=== PATIENT | male | born 1945 | race Caucasian/White ===

== ENCOUNTER 2016-10-19 17:11 | Inpatient (IN) ==
--- NOTE | 2016-10-19 17:21 | Emergency Department Note ---
Disposition Clinical Impression: NSTEMI (non-ST elevated myocardial infarction), Unstable angina pectoris Disposition: Admitted As Inpatient Condition: Good Referrals: NO,PCP [Non-Partnered Physician] - Forms: ED Satisfaction Letter Chest Pain HPI - General Chief Complaint: ED Chest Pain Stated Complaint: chest pain Source: patient, EMS Mode of arrival: EMS Limitations: no limitations Vital Signs Reviewed: Yes Nursing Notes Reviewed: Yes - History of Present Illness HPI Narrative: Patient is a 71-year-old male who had an episode of chest tightness approximately 4 hours before arrival. He took one sublingual nitroglycerin did help his pain somewhat. He went out to the [place] urgent care he was given a second sublingual nitroglycerin and aspirin the pain completely resolved and the second nitroglycerin. He is also experiencing some dizziness which he takes meclizine and took that medication also. He was referred here for the [facility] has first troponin was negative and nonischemic EKG and is chest pain-free at this time Pt complaint: chest pain Onset (ago): hour(s) (4) Duration: constant, now resolved Onset: during rest Pain Location: substernal Severity scale (1-10): 0 Quality: tightness Pain Radiation: none Improves with: nitroglycerin Worsens with: nothing Associated symptoms: Denies: vomiting, diaphoresis - Related Data Allergies Allergy/AdvReac Type Severity Reaction Status Date / Time celecoxib [From Celebrex] Allergy Palpitation Verified 10/19/16 17:16 s simvastatin Allergy Joint Pain Verified 10/19/16 17:16 All systems ED: reviewed and negative except as stated. Constitutional: Denies: fever, chills Neurological: Reports: other (dizzy) Chest Pain PMH - Past Medical History Medical history: Reports: coronary artery disease, diabetes, GERD, hypertension Psychiatric history: Reports: no psych history - Social History Smoking Status: Never smoker Alcohol use: Reports: none Drug use: Reports: none Physical Exam - General Limitations: no limitations General appearance: alert - Head Head exam: atraumatic, normocephalic, normal inspection - Eye Eye exam: Present: normal appearance, PERRL, EOMI - Expanded Eye Exam Pupils: Left: reactive - ENT ENT exam: normal exam, normal oropharynx, mucous membranes moist - Expanded ENT Exam External ear exam: Present: normal external inspection Mouth exam: Present: normal external inspection Teeth exam: Present: normal inspection Throat exam: Present: normal inspection - Neck Neck exam: Present: normal inspection, full ROM, trachea midline - Chest Chest inspection: Present: normal inspection, symmetric chest wall rise - Respiratory Respiratory exam: Present: normal lung sounds bilaterally - Cardiovascular Cardiovascular exam: Present: regular rate, normal rhythm, normal heart sounds - Abdominal Exam Abdominal exam: Present: soft, Non-Tender. Absent: tenderness, distention, guarding, rebound, rigidity - Extremities Exam Extremities exam: Present: normal inspection, full ROM. Absent: tenderness, pedal edema - Expanded Upper Extremity Exam Shoulder exam: Present: normal inspection, full ROM Arm exam: Present: normal inspection, full ROM Elbow exam: Present: normal inspection, full ROM Forearm/Wrist exam: Present: normal inspection, full ROM Hand exam: Present: normal inspection, full ROM Vascular exam: Normal: capillary refill, radial pulse - Expanded Lower Extremity Exam Hip/Pelvis exam: Present: normal inspection, full ROM Upper leg exam: Present: normal inspection, full ROM Knee exam: Present: normal inspection, full ROM Lower leg exam: Present: normal inspection, full ROM Ankle exam: Present: normal inspection, full ROM Foot/toe exam: Present: normal inspection, full ROM Neurovascular/Tendon exam: Absent: motor deficit, sensory deficit, tendon deficit - Back Exam Back exam: Present: normal inspection, full ROM. Absent: tenderness - Neurological Exam Neurological exam: Present: alert, oriented X3 - Expanded Neurological Exam Patient oriented to: Present: person, place, time Coma Scale Eye Opening: Spontaneous Coma Scale Motor Response: Obeys Commands Coma Scale Verbal Response: Oriented Coma Scale Total: 15 - Psychiatric Psychiatric exam: Present: normal affect, normal mood - Skin Skin exam: Present: warm, dry, intact, normal color Course Vital Signs Temperature 98.1 F 10/19/16 17:12 Pulse Rate 66 10/19/16 17:12 Respiratory Rate 18 10/19/16 17:12 Blood Pressure 146/74 10/19/16 17:12 O2 Sat by Pulse Oximetry 96 10/19/16 17:12 Temperature 98.1 F 10/19/16 17:12 Pulse Rate 61 10/19/16 19:37 Respiratory Rate 18 10/19/16 19:37 Blood Pressure 125/71 10/19/16 19:37 O2 Sat by Pulse Oximetry 98 10/19/16 19:37 Chest Pain - Differential Diagnosis Likely: stable angina, unstable angina pectoris, atypical chest pain, st elevation myocardial infraction, chest pain - Medical Records Medical records reviewed: Yes I reviewed the patient's medical records. - Lab Data Lab results reviewed: Yes I reviewed the patient's lab results. Result diagrams: 10/19/16 19:02 Lab Results 10/19/16 10/19/16 10/19/16 Range/Units 19:01 19:02 20:36 Sodium 139 (136-145) mEq/L Potassium 4.8 H (3.5-4.5) mEq/L Chloride 107 (98-109) mEq/L Carbon Dioxide 17 L (19-29) mEq/L BUN 21 (8-26) mg/dL Creatinine 1.42 H (0.72-1.25) mg/dL Est GFR ( Amer) 60 (> 60) Est GFR (Non-Af Amer) 49 L (> 60) BUN/Creatinine Ratio 15 (6-26) Glucose 113 H (70-99) mg/dL Calculated Osmolality 292 (280-300) Calcium 8.8 (8.6-10.8) mg/dL Troponin I 0.15 H* (0-0.03) ng/mL Specimen Rejected Volume - Radiology Data Radiology results reviewed: Yes I reviewed the patient's radiology results.
[2016-10-19 19:21] LABS: Calcium 8.8 mg/dL (8.6-10.8)
[2016-10-19 19:23] LABS: Potassium 4.8 mEq/L (3.5-4.5)
[2016-10-19] MEDS ORDERED: *HR* Enoxaparin 120 MG/0.8 ML SYRINGE SQ STA (21:14)
[2016-10-19] MEDS ORDERED: Ondansetron 4 MG/2 ML VIAL IVP PRN (23:42)
[2016-10-19] MEDS ORDERED: Naloxone 0.4 MG/ML INJ IVP PRN (23:42)
[2016-10-19] MEDS ORDERED: Acetaminophen 325 MG TABLET PO PRN (23:42)
[2016-10-19] MEDS ORDERED: *HR* Morphine 2 MG/ML SYRINGE IVP PRN (23:42)
[2016-10-19] MEDS ORDERED: 0.9 % Sodium Chloride 1,000 ML IVC SCH (23:45)
[2016-10-20 03:49] LABS: Basophils % 0.3 %; Eosinophils # 0.2 K/mcL (0.0-0.6); Eosinophils % 1.6 %; Hematocrit 39.3 % (37.5-50.1); Hemoglobin 12.7 g/dL (12.9-16.9); Immature Granulocytes % 0.8 % (0-4); Immature Platelets 4.2 % (1.1-6.1); Lymphocytes # 2.3 K/mcL (0.6-4.6); Lymphocytes % 23.7 %; Mean Corpuscular HGB Conc 32.3 g/dL (31.6-35.5); Mean Corpuscular Hemoglobin 28.8 pg (28.0-33.3); Mean Corpuscular Volume 89.1 fL (83.0-100.0); Mean Platelet Volume 10.3 fL (9.4-12.4); Monocytes # 0.9 K/mcL (0.0-1.3); Monocytes % 9.3 %; Neutrophils # 6.1 K/mcL (1.6-8.9); Platelet Count 213 K/mcL (140-400); Red Blood Count 4.41 M/mcL (4.19-5.50); Segmented Neutrophils % 64.3 %
[2016-10-20 04:09] LABS: BUN/Creatinine Ratio 17 (6-26); Blood Urea Nitrogen 21 mg/dL (8-26); Calcium 8.2 mg/dL (8.6-10.8); Carbon Dioxide 26 mEq/L (19-29); Chloride 105 mEq/L (98-109); Chol/HDL Ratio 4.6 (0-4.9); Cholesterol 102 mg/dL (< 200); Glucose 159 mg/dL (70-99); HDL Cholesterol 22 mg/dL (40-59); LDL Cholesterol,Calculated 44 mg/dL (0-99); Magnesium 1.7 mg/dL (1.6-2.6); Osmolality,Calculated 298 (280-300); Sodium 141 mEq/L (136-145); Triglycerides 179 mg/dL (< 150); eGFR For African Americans > 60 (> 60); eGFR For Non-African Americans 57 (> 60)
[2016-10-20 04:26] LABS: Potassium 3.1 mEq/L (3.5-4.5)
--- NOTE | 2016-10-20 04:51 | Internal Med History&Physical ---
Date of Encounter: 10/20/16 Time of Encounter: 01:00 Assessment and Plan (1) Coronary artery disease Current visit: Yes Status: Acute We will treat the patient with aspirin, nitroglycerin as needed, statin and beta eoly. Qualifiers: Coronary Disease-Associated Artery/Lesion type: [place] artery [place] vs. transplanted heart: [place] heart Associated angina: with unstable angina Qualified Code(s): I25.110 - Atherosclerotic heart disease of [place] coronary artery with unstable angina pectoris (2) Type 2 diabetes mellitus Current visit: Yes Status: Acute Insulin sliding scale. Qualifiers: Diabetes mellitus complication status: with circulatory complication Diabetes mellitus complication detail: with other circulatory complications Diabetes mellitus mcfp insulin use: with mcfp use Qualified Code(s) : E11.59 - Type 2 diabetes mellitus with other circulatory complications; Z79.4 - residential (current) use of insulin (3) Essential hypertension Current visit: Yes Status: Acute Continue oral antihypertensive medication regimen. (4) NSTEMI (non-ST elevated myocardial infarction) Current visit: Yes Status: Acute We will start a heparin drip. Nothing by mouth for possible cardiac catheterization today. Also cardiology. Obtain echocardiogram. Continue one aspirin and beta eloy. Oxygen by nasal cannula. Nitroglycerin as needed. He is at high risk for morbidity and mortality and complications due to invasive cardiovascular studies with IV contrast dye. Internal Medicine - H&P: HPI Admitted From: Emergency Dept Plans for Post Hospital Care: Home History of present illness: Mr. Bocanegra is a 71 year old male with past medical history significant for coronary artery disease hypertension and diabetes who presented to the hospital for chest pain. He describes left-sided chest pain which started at rest earlier today graded as 7/10, pressure or squeezing like initially improved with nitroglycerin. He initially presented to the [facility] and was transferred to our hospital. At the [facility] his troponin was negative. Here in the emergency department troponin was 0.15. A 10 point review of systems was negative except as above. Family history negative for premature coronary artery disease in both parents. Patient's father of complications of asthma. Past Med Surg Social Fam HX - Past Medical History Medical history: coronary artery disease, diabetes, GERD, hypertension Psychiatric history: no psych history - Social History Smoking Status: Never smoker Smokeless Tobacco Status: No Alcohol use: none Drug use: none - Family History Mother Living Status: Age at : 92 Father Living Status: Hx Family Cardiac Disorders: Yes Hx Family Respiratory Disorders: Yes (asthma) Brother Hx Family Cancer: Yes (throat) Sister Hx Family Cancer: Yes (breast) Internal Medicine - H&P: Meds Acetaminophen [Tylenol] 325 mg PO Q6HR PRN 10/19/16 [History] Amlodipine Besylate 10 mg PO DAILY 10/19/16 [History] Aspirin Enteric Coated [Aspirin EC] 81 mg PO DAILY 10/19/16 [History] Carboxymethylcellulose Sodium [Refresh Liquigel] 1 drop BOTH EYES QID 10/19/16 [ History] Cholecalciferol (D-3) [Vitamin D] 2,000 unit PO DAILY 10/19/16 [History] Gabapentin [Neurontin] 300 mg PO TID 10/19/16 [History] Grape Seed Extract [Grape Seed] 50 mg PO DAILY 10/19/16 [History] Isosorbide MONOnitrate (24 HR) [Imdur] 60 mg PO DAILY 10/19/16 [History] Lisinopril/Hydrochlorothiazide [Zestoretic 20-25 mg Tablet] 1 each PO DAILY [History] Meclizine HCl [Verticalm] 25 mg PO Q6H PRN 10/19/16 [History] Metformin HCl [Glucophage] 1,000 mg PO BID 10/19/16 [History] Methocarbamol [Robaxin-750] 750 mg PO QID PRN 10/19/16 [History] Metoprolol [Lopressor] 37.5 mg PO BID 10/19/16 [History] Morphine Sulfate 15 mg PO BID 10/19/16 [History] Pantoprazole Sodium [Protonix] 40 mg PO DAILY 10/19/16 [History] Pravastatin Sodium [Pravachol] 30 mg PO HS 10/19/16 [History] Tamsulosin [Flomax] 0.4 mg PO DAILY 10/19/16 [History] Testosterone [Androgel] 2 spray TD DAILY 10/19/16 [History] Ubidecarenone [Coenzyme Q-10] 200 mg PO DAILY 10/19/16 [History] Allergies celecoxib [From Celebrex] Allergy (Verified 10/19/16 17:16) Palpitations simvastatin Allergy (Verified 10/19/16 17:16) Joint Pain All Systems PM: A 10-system review of systems was performed and is negative for pertinent findings except as documented above in the HPI. - Constitutional Vitals: Temp Pulse Resp BP Pulse Ox 97.7 F 73 18 104/58 94 L 10/20/16 02:48 10/20/16 02:48 10/20/16 02:48 10/20/16 02:48 10/20/16 02:48 General appearance: Present: A&O X 3 - Eye Eye exam: Present: PERRL, conjuntiva pink, sclera anicteric Pupils: Present: PERRL - Respiratory Respiratory exam: Present: CTAB. Absent: accessory muscle use, rales, rhonchi, wheezes - Cardiovascular Cardiovascular exam: Present: RRR, +S1, +S2. Absent: diastolic murmur, gallop, rubs, systolic murmur - GI/Abdominal GI/Abdominal exam: Present: normal bowel sounds, soft, no peritoneal signs. Absent: distended, tenderness - Extremities Exam Extremities exam: Present: warm, radial pulses palpable and symetrical. Absent : calf tenderness, cyanotic, pedal edema - Neurological Exam Neurological exam: Present: CN II-XII intact, oriented X3, no focal deficits. Absent: pronater drift, facial droop, speech deficit - Skin Skin exam: Present: dry, intact Internal Med - H&P Results - Labs CBC & Chem 7: 10/20/16 03:01 10/20/16 03:01 Labs: Short CBC 10/20/16 Range/Units 03:01 WBC 9.5 (4.3-11.1) K/mcL Hgb 12.7 L (12.9-16.9) g/dL Hct 39.3 (37.5-50.1) % Plt Count 213 (140-400) K/mcL Neutrophils # 6.1 (1.6-8.9) K/mcL BMP 10/20/16 03:01 Sodium 141 Potassium 3.1 L D Chloride 105 Carbon Dioxide 26 BUN 21 Creatinine 1.25 Glucose 159 H Calcium 8.2 L Cardiac Enzymes 10/20/16 Range/Units 03:01 Troponin I 0.19 H* (0-0.03) ng/mL - Impressions [facility] reveals normal sinus rhythm, normal axis and intervals no acute ST or T-wave changes.
[2016-10-20] MEDS ORDERED: *HR* Heparin 5,000 UNIT/ML VIAL IVP PRN ×2 (05:50)
[2016-10-20] MEDS ORDERED: *HR* Heparin 5,000 UNIT/ML VIAL IVP ONE (05:50)
[2016-10-20] MEDS ORDERED: Nitroglycerin 0.4 MG TAB.SUBL SL PRN (05:53)
[2016-10-20 06:28] LABS: INR 1.1
[2016-10-20 06:30] LABS: Activated Partial Thrombo Time 30.7 Seconds (26.0-36.0)
[2016-10-20] MEDS: Heparin 25,000 UNIT/500 ML D5W 25,000 UNIT/500 ML MLS IVC SCH (06:32)
[2016-10-20 08:38] LABS: Hematocrit 38.8 % (37.5-50.1); Mean Corpuscular HGB Conc 33.5 g/dL (31.6-35.5); Mean Corpuscular Hemoglobin 29.5 pg (28.0-33.3); Mean Platelet Volume 10.5 fL (9.4-12.4); Platelet Count 199 K/mcL (140-400); Red Blood Count 4.41 M/mcL (4.19-5.50); Red Cell Distribution Width 13.9 % (11.5-14.5)
[2016-10-20] MEDS: amLODIPine 5 MG TABLET PO SCH (09:23)
[2016-10-20] MEDS: Gabapentin 300 MG CAPSULE PO SCH ×3 (09:23→20:03)
[2016-10-20] MEDS: Aspirin Enteric Coated 81 MG Tablet PO SCH (09:23)
[2016-10-20] MEDS: Isosorbide MONOnitrate (24 HR) 60 MG TAB.ER.24H PO SCH (09:23)
--- NOTE | 2016-10-20 09:33 | Cardiology Consult Note ---
<Clarisa Woo Tom - Last Filed: 10/20/16 09:43> Date of Encounter: 10/20/16 Time of Encounter: 08:20 Assessment and Plan (1) NSTEMI (non-ST elevated myocardial infarction) Current Visit: Yes Status: Acute Peak troponin 0.20, no acute ischemic ECG changes. Reports hx of x2 stents at [facility] in 2010. Typical chest pain symptoms--similar to previous MS. Continue heparin gtt, asa, statin, nitrates, and betablocker. Recommend [facility]; alternatives, risks, and benefits discussed; Mr. Bocanegra is agreeable to proceed. Echocardiogram pending. Further recommendations pending above testing. Will discuss with Dr. Wesley. (2) Essential hypertension Current Visit: Yes Status: Acute Continue oral antihypertensive medication regimen. (3) Type 2 diabetes mellitus Current Visit: Yes Status: Acute Qualifiers: Diabetes mellitus complication status: with circulatory complication Diabetes mellitus complication detail: with other circulatory complications Diabetes mellitus terminal clerk insulin use: with long-term use Qualified Code(s) : E11.59 - Type 2 diabetes mellitus with other circulatory complications; Z79.4 - manager terminal (current) use of insulin Discussion w patient/family: The assessment and plan as outlined above was discussed with the patient and/or family members who expressed understanding and agreement. All questions were answered. Thank you for involving us in the care of your patient. Please call with any questions. The patient will be discussed and reviewed with Dr. Wesley; changes to be made accordingly. History of Present Illness Consult date: 10/20/16 Requesting physician: Kwasi Olvera Consult reason: NSTEMI Chief complaint: Chest pain History of present illness: Mr. Bocanegra is a 71 year old male with PMH significant for CAD s/p PCI, DMII, HTN, HLD, and vertigo [facility]. 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 He then sat down and took a NTG tab which alleviated his pain after 10-15 minutes. He was then sent to [facility] for further evaluation. Of note, reports GI virus with vomiting/diarrhea early last week. No prior records available at [facility]. Reports PCI (x2 stents) at [facility] in 2010. Also reports his PCP increased his imdur to 60 mg a few months ago which improved chest pain symptoms. Past Med Surg Social Fam HX - Past Medical History Medical history: coronary artery disease, diabetes, GERD, hyperlipidemia, hypertension Psychiatric history: no psych history - Past Surgical History Surgical History: angioplasty/stent - Social History Smoking Status: Former smoker (in 1992) Smokeless Tobacco Status: No Alcohol use: none Drug use: none - Family History Mother Living Status: Age at : 92 Father Living Status: Hx Family Cardiac Disorders: Yes Hx Family Respiratory Disorders: Yes (asthma) Brother Hx Family Cancer: Yes (throat) Sister Hx Family Cancer: Yes (breast) Medications and Allergies Acetaminophen [Tylenol] 325 mg PO Q6HR PRN 10/19/16 [History] Amlodipine Besylate 10 mg PO DAILY 10/19/16 [History] Aspirin Enteric Coated [Aspirin EC] 81 mg PO DAILY 10/19/16 [History] Carboxymethylcellulose Sodium [Refresh Liquigel] 1 drop BOTH EYES QID 10/19/16 [ History] Cholecalciferol (D-3) [Vitamin D] 2,000 unit PO DAILY 10/19/16 [History] Gabapentin [Neurontin] 300 mg PO TID 10/19/16 [History] Grape Seed Extract [Grape Seed] 50 mg PO DAILY 10/19/16 [History] Isosorbide MONOnitrate (24 HR) [Imdur] 60 mg PO DAILY 10/19/16 [History] Lisinopril/Hydrochlorothiazide [Zestoretic 20-25 mg Tablet] 1 each PO DAILY [History] Meclizine HCl [Verticalm] 25 mg PO Q6H PRN 10/19/16 [History] Metformin HCl [Glucophage] 1,000 mg PO BID 10/19/16 [History] Methocarbamol [Robaxin-750] 750 mg PO QID PRN 10/19/16 [History] Metoprolol [Lopressor] 37.5 mg PO BID 10/19/16 [History] Morphine Sulfate 15 mg PO BID 10/19/16 [History] Pantoprazole Sodium [Protonix] 40 mg PO DAILY 10/19/16 [History] Pravastatin Sodium [Pravachol] 30 mg PO HS 10/19/16 [History] Tamsulosin [Flomax] 0.4 mg PO DAILY 10/19/16 [History] Testosterone [Androgel] 2 spray TD DAILY 10/19/16 [History] Ubidecarenone [Coenzyme Q-10] 200 mg PO DAILY 10/19/16 [History] Allergies celecoxib [From Celebrex] Allergy (Verified 10/19/16 17:16) Palpitations simvastatin Allergy (Verified 10/19/16 17:16) Joint Pain All Systems Review: A 10-system review of systems was performed and is negative for pertinent findings except as documented above in the HPI. - Cardiovascular Cardiovascular: as per HPI Physical Examination Vital Signs, Last 4 Hours Temp Pulse Resp BP Pulse Ox 10/20/16 09:22 62 10/20/16 07:05 97.6 F 58 16 143/82 95 General: Conversant, No Apparent Distress HEENT: Atraumatic, Normocephaly, Mucus Membranes Moist Neck: No JVD Cardiac: Reg Rate and Rhythm, Normal S1 and S2 Lungs: Normal Breath Sounds Neuro: Alert and responsive Abdomen: Soft Skin: No rashes noted on visualized skin Musculoskeletal: No Chest Wall Tenderness Extremities: No Edema, Normal Pulses Results 10/20/16 08:13 10/20/16 03:01 Lab Results 10/20/16 10/20/16 10/20/16 03:01 03:01 03:01 WBC 9.5 Hgb 12.7 L Hct 39.3 Plt Count 213 INR APTT Sodium 141 Potassium 3.1 L D Chloride 105 Carbon Dioxide 26 BUN 21 Creatinine 1.25 Glucose 159 H Calcium 8.2 L Magnesium 1.7 Troponin I 0.19 H* 10/20/16 10/20/16 10/20/16 06:13 08:13 08:13 WBC 9.9 Hgb 13.0 Hct 38.8 Plt Count 199 INR 1.1 APTT 30.7 Sodium Potassium Chloride Carbon Dioxide BUN Creatinine Glucose Calcium Magnesium Troponin I 0.20 H* Active Medications Acetaminophen (Tylenol) 650 mg PO Q6HR PRN PRN Reason: Mild Pain (1-3) Stop: 04/20/17 23:43 Amlodipine Besylate (Norvasc) 10 mg PO DAILY [facility] Stop: 04/21/17 09:01 Last Admin: 10/20/16 09:23 Dose: 10 mg Aspirin (Aspirin Ec) 81 mg PO DAILY [facility] Stop: 04/21/17 09:01 Last Admin: 10/20/16 09:23 Dose: 81 mg Gabapentin (Neurontin) 300 mg PO TID [facility] Stop: 04/21/17 09:01 Last Admin: 10/20/16 09:23 Dose: 300 mg Heparin Sodium (Porcine) (Heparin) 4,000 unit IVP Q6HR PRN PRN Reason: SEE COMMENTS Stop: 04/21/17 05:51 Heparin Sodium (Porcine) (Heparin) 2,000 unit IVP Q6H PRN PRN Reason: SEE COMMENTS Stop: 04/21/17 05:51 Heparin Sodium/Dextrose (Heparin 25,000 Unit/500 Ml D5w) 25,000 unit in 500 mls @ 19.893 mls/hr IVC .Q24H MARI; 9.1 UNIT/KG/HR PRN Reason: Protocol Stop: 04/21/17 06:01 Last Admin: 10/20/16 06:32 Dose: 9.1 unit/kg/hr, 19.893 mls/hr Isosorbide Mononitrate (Imdur) 60 mg PO DAILY [facility] Stop: 04/21/17 09:01 Last Admin: 10/20/16 09:23 Dose: 60 mg Morphine Sulfate (Morphine Sulfate) 2 mg IVP Q4HR PRN PRN Reason: Severe Pain (7-10) Stop: 04/20/17 23:43 Naloxone HCl (Narcan) 0.4 mg IVP Q2MIN PRN PRN Reason: Opioid Reversal Stop: 04/20/17 23:43 Nitroglycerin (Nitroglycerin) 0.4 mg SL Q5MIN PRN PRN Reason: Chest Pain Stop: 04/21/17 05:54 Ondansetron HCl (Zofran) 4 mg IVP Q8HR PRN PRN Reason: Nausea And Vomiting Stop: 04/20/17 23:43 Pharmacy Profile Note (Patient Taking Own Medication) 1 each PO HS [facility] Stop: 04/21/17 21:01 Tamsulosin HCl (Flomax) 0.4 mg PO DAILY [facility] PRN Reason: Protocol Stop: 04/21/17 09:01 Last Admin: 10/20/16 09:23 Dose: 0.4 mg - Imaging and Cardiology Echo: pending Other Results: 12 hour tele: avg HR=63 SR. No signficant event noted. - EKG Interpretation EKG results cardiology: personally reviewed Consult Discharge Plan - Plan [facility]errals: [facility]Primary Care Provider] - <LupilloClaudia - Last Filed: 10/20/16 10:18> Assessment and Plan Discussion w patient/family: The assessment and plan as outlined above was discussed with the patient and/or family members who expressed understanding and agreement. All questions were answered. Thank you for involving us in the care of your patient. Please call with any questions. History of Present Illness History of present illness: Mr. Bocanegra is a 71 year old male All Systems Review: A 10-system review of systems was performed and is negative for pertinent findings except as documented above in the HPI. Physical Examination Vital Signs, Last 4 Hours Temp Pulse Resp BP Pulse Ox 10/20/16 09:22 62 10/20/16 07:05 97.6 F 58 16 143/82 95 Results 10/20/16 08:13 10/20/16 03:01 Lab Results 10/20/16 10/20/16 10/20/16 03:01 03:01 03:01 WBC 9.5 Hgb 12.7 L Hct 39.3 Plt Count 213 INR APTT Sodium 141 Potassium 3.1 L D Chloride 105 Carbon Dioxide 26 BUN 21 Creatinine 1.25 Glucose 159 H Calcium 8.2 L Magnesium 1.7 Troponin I 0.19 H* 10/20/16 10/20/16 10/20/16 06:13 08:13 08:13 WBC 9.9 Hgb 13.0 Hct 38.8 Plt Count 199 INR 1.1 APTT 30.7 Sodium Potassium Chloride Carbon Dioxide BUN Creatinine Glucose Calcium Magnesium Troponin I 0.20 H* - Attending Attestation I examined this patient and my medical decision-making was reviewed with the ZIPPER MACHINE OPERATOR/PA/Advanced Practice Nurse/Resident Physician. I agree with the documented findings, disposition and treatment plan. Mr. Bocanegra presents with an NSTEMI. He describes chest tightness yesterday, typical of his usual symptoms. He has an elevated troponin, now rising at 0.2. Given known history of CAD, his typical symptoms and elevated troponin, we have recommended a LHC. The R/B/A of the procedure were discussed with the patient who expressed understanding and verbalized agreement to proceed.
[2016-10-20] MEDS ORDERED: 0.9 % Sodium Chloride 1,000 ML ONE ×3 (11:56→16:23)
[2016-10-20] MEDS ORDERED: Nitroglycerin 1,000 MCG/10 ML VIAL IV ONE (11:56)
[2016-10-20] MEDS ORDERED: Heparin 1,000 UNITS/500 mL NS 500 ML ONE (11:56)
[2016-10-20] MEDS ORDERED: *HR* Heparin 10,000 UNIT/10 ML VIAL ONE (11:56)
--- NOTE | 2016-10-20 11:59 | Pre-Sedation Evaluation ---
Pre-sedation evaluation - Pre-sedation checklist Date of procedure: 10/20/16 Procedure: Heart Cath Recent Vitals: Last Vital Signs Temp 97.4 F L 10/20/16 11:01 Pulse 61 10/20/16 11:01 Resp 17 10/20/16 11:01 BP 124/81 10/20/16 11:01 Pulse Ox 95 10/20/16 11:01 H&P (including ROS) documented in medical record: Yes Previous reaction to sedatives/anesthetics: No Dietary Status: Clear fluids after Midnight Dentition: No loose teeth or bridges, dentures removed Possible difficult airway: No ASA Classification *see protocol: CLASS II-Mild systemic disease Plan of Care: Pt appropriate candidate for procedure/moderate/conscious sedation , Risks/benefits of procedure/sedation discussed w/ patient/family, If not NPO; Risk of intake outweiged by necessity to perform procedure
[2016-10-20] MEDS ORDERED: *HR* Midazolam HCl 2 MG/2 ML VIAL ONE (12:10)
[2016-10-20] MEDS ORDERED: *HR* FentaNYL (PF) 100 MCG/2 ML VIAL ONE (12:11)
[2016-10-20] MEDS ORDERED: *HR* Bivalirudin 250 MG VIAL IVC ONE (12:41)
[2016-10-20] MEDS ORDERED: *HR* Adenosine 6 MG/2 ML VIAL IVP ONE (12:41)
[2016-10-20] MEDS ORDERED: *HR* Ticagrelor 90 MG TABLET ONE (13:05)
--- NOTE | 2016-10-20 15:01 | Internal Med Progress Note ---
Date of Encounter: 10/20/16 Time of Encounter: 09:00 - Assessment and plan (1) NSTEMI (non-ST elevated myocardial infarction) Current Visit: Yes Status: Acute Assessment and plan: Patient has elevated troponin with chest pain, history of CAD. Consider NSTEMI , cardiology consul on case, plan for catheterization. Continue heparin drip now. Pt is at high risk because he is on heparin drip, needed close monitoring. (2) Coronary artery disease Current Visit: Yes Status: Acute Assessment and plan: Patient has stents in 2010. Continue aspirin, brilinta, beta eloy, and statin. Qualifiers: Coronary Disease-Associated Artery/Lesion type: [place] artery [place] vs. transplanted heart: [place] heart Associated angina: with unstable angina Qualified Code(s): I25.110 - Atherosclerotic heart disease of [place] coronary artery with unstable angina pectoris (3) Hypokalemia Current Visit: Yes Status: Acute Assessment and plan: Will give potassium supplement (4) Essential hypertension Current Visit: Yes Status: Acute Assessment and plan: Continue home medication. 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 - Subjective Interval history: Patient is a 71-year-old male admitted for chest pain. He has an elevated troponin and was a consider as NSTEMI. His past medical history is significant for CAD, hypertension, diabetes. He was seen and examined. He is pain-free when I saw him. In no acute distress. Vitals are stable. Patient was treated with heparin drip for NSTEMI. Cardiology saw patient and the plan for catheterization. We will continue to closely monitor patient. - Constitutional Vitals: Temp Pulse Resp BP Pulse Ox 97.4 F L 61 17 124/81 95 10/20/16 11:01 10/20/16 11:01 10/20/16 11:01 10/20/16 11:01 10/20/16 11:01 General appearance: Present: A&O X 3 - Head Head exam: Present: atraumatic, normocephalic - Eye Eye exam: Present: PERRL, conjuntiva pink, sclera anicteric Pupils: Present: PERRL - Neck Neck exam general surgery: Present: supple, trachea midline. Absent: lymphadenopathy - Respiratory Respiratory exam: Present: CTAB. Absent: accessory muscle use, rales, rhonchi, wheezes - Cardiovascular Cardiovascular exam: Present: RRR, +S1, +S2. Absent: diastolic murmur, gallop, rubs, systolic murmur - GI/Abdominal GI/Abdominal exam: Present: normal bowel sounds, soft, no peritoneal signs. Absent: distended, tenderness - Extremities Exam Extremities exam: Present: warm, radial pulses palpable and symetrical. Absent : calf tenderness, cyanotic, pedal edema - Neurological Exam Neurological exam: Present: CN II-XII intact, oriented X3, no focal deficits. Absent: pronater drift, facial droop, speech deficit - Skin Skin exam: Present: dry, intact Internal Medicine: Result - Labs CBC & Chem 7: 10/20/16 08:13 10/20/16 03:01 Labs: Short CBC 10/20/16 10/20/16 Range/Units 03:01 08:13 WBC 9.5 9.9 (4.3-11.1) K/mcL Hgb 12.7 L 13.0 (12.9-16.9) g/dL Hct 39.3 38.8 (37.5-50.1) % Plt Count 213 199 (140-400) K/mcL Neutrophils # 6.1 (1.6-8.9) K/mcL BMP 10/20/16 03:01 Sodium 141 Potassium 3.1 L D Chloride 105 Carbon Dioxide 26 BUN 21 Creatinine 1.25 Glucose 159 H Calcium 8.2 L Cardiac Enzymes 10/20/16 10/20/16 Range/Units 03:01 08:13 Troponin I 0.19 H* 0.20 H* (0-0.03) ng/mL - ABG Interpretation ABG results: PT/INR, D-dimer PT 12.0 Seconds (9.4-12.1) 10/20/16 06:13 Consult Discharge Plan - Plan [facility]errals: [facility] [Primary Care Provider] -
[2016-10-20] MEDS ORDERED: Methocarbamol 750 MG TABLET PO PRN (15:59)
[2016-10-20] MEDS ORDERED: *HR* Atropine Sulfate 1 MG/10 ML SYRINGE ONE (16:23)
[2016-10-20] MEDS: CARBOXYMETHYLCELLULOSE SODIUM D OP SCH ×2 (17:17→20:03)
[2016-10-20] MEDS: *HR* Ticagrelor 90 MG TABLET PO SCH (20:02)
[2016-10-20] MEDS: *HR* Morphine Sulfate SR (12 HR) 15 MG TABLET.ER PO SCH (20:02)
[2016-10-20] MEDS ORDERED: PRAVASTATIN SODIUM PO SCH (21:00)
[2016-10-21] MEDS: Heparin 25,000 UNIT/500 ML D5W 25,000 UNIT/500 ML MLS IVC SCH (03:30)
[2016-10-21 05:10] LABS: Basophils % 0.4 %; Eosinophils # 0.2 K/mcL (0.0-0.6); Eosinophils % 2.3 %; Hematocrit 39.8 % (37.5-50.1); Hemoglobin 12.8 g/dL (12.9-16.9); Immature Granulocytes % 0.9 % (0-4); Lymphocytes # 2.5 K/mcL (0.6-4.6); Lymphocytes % 26.7 %; Mean Corpuscular HGB Conc 32.2 g/dL (31.6-35.5); Mean Corpuscular Hemoglobin 28.6 pg (28.0-33.3); Mean Platelet Volume 10.3 fL (9.4-12.4); Monocytes # 0.9 K/mcL (0.0-1.3); Monocytes % 10.1 %; Neutrophils # 5.6 K/mcL (1.6-8.9); Platelet Count 229 K/mcL (140-400); Red Blood Count 4.47 M/mcL (4.19-5.50); Segmented Neutrophils % 59.6 %
[2016-10-21 05:15] LABS: BUN/Creatinine Ratio 13 (6-26); Blood Urea Nitrogen 12 mg/dL (8-26); Calcium 8.7 mg/dL (8.6-10.8); Carbon Dioxide 23 mEq/L (19-29); Chloride 109 mEq/L (98-109); Glucose 104 mg/dL (70-99); Osmolality,Calculated 292 (280-300); Potassium 3.8 mEq/L (3.5-4.5); Sodium 141 mEq/L (136-145); eGFR For African Americans > 60 (> 60); eGFR For Non-African Americans > 60 (> 60)
--- NOTE | 2016-10-21 08:37 | Cardiology Progress Note ---
Date of Encounter: 10/21/16 Time of Encounter: 08:00 Assessment and Plan (1) NSTEMI (non-ST elevated myocardial infarction) Current Visit: Yes Status: Acute Peak troponin 0.20, no acute ischemic ECG changes. Reports hx of x2 stents at [facility] in 2010. Typical chest pain symptoms--similar to previous ND. LHC: PTCA/PRINCE to Right PDA; otherwise mild, non-obstructive CAD. EF 55% FFR 0.72 R PDA, FFR 0.82 R PLB TTE: completed, not yet read--can follow-up as outpatient to discuss results. Post PCI guidelines including care of site and importance of uninterrupted DAPT therapy emphasized (asa + brilinta) for at least 1 year; 30-day free card provided. Recommned 5-7 day appt with Cardiology--will coordinate with office, patient will be contacted with appt date/time early this week. Continue betablocker, statin (pravachol at home), ACEi, and nitrates. Cardiology will sign-off, please call with questions. (2) Essential hypertension Current Visit: Yes Status: Acute Continue oral antihypertensive medication regimen. (3) Type 2 diabetes mellitus Current Visit: Yes Status: Acute Insulin sliding scale. Qualifiers: Diabetes mellitus complication status: with circulatory complication Diabetes mellitus complication detail: with other circulatory complications Diabetes mellitus care home insulin use: with care home use Qualified Code(s) : E11.59 - Type 2 diabetes mellitus with other circulatory complications; Z79.4 - [facility] (current) use of insulin Discussion w patient/family: The assessment and plan as outlined above was discussed with the patient and/or family members who expressed understanding and agreement. All questions were answered. Thank you for involving us in the care of your patient. Please call with any questions. The patient was discussed and reviewed with Dr. Wesley; Cardiology will sign-off , please call with questions. Subjective Principal diagnosis: NSTEMI Interval history: Seen and examined--denies any events including chest pain or discomfort overnight. No issues with right groin cath site. Discussed plan with patient and . Objective Vital Signs, Last 4 Hours Pulse Ox 10/21/16 07:35 97 General: Conversant, No Apparent Distress HEENT: Atraumatic, Normocephaly, Mucus Membranes Moist Cardiac: Reg Rate and Rhythm, Normal S1 and S2 Lungs: Normal Breath Sounds Neuro: Alert and responsive, No focal deficits noted Abdomen: Soft, Non-Tender Skin: No rashes noted on visualized skin Musculoskeletal: No Chest Wall Tenderness Extremities: No Edema, Normal Pulses Other: right groin : dressing removed, no hematoma oozing or ecchymosis noted at site. +2 PT/DP pulses bilaterally. Results 10/21/16 04:36 10/21/16 04:36 Lab Results 10/21/16 10/21/16 04:36 04:36 WBC 9.3 Hgb 12.8 L Hct 39.8 Plt Count 229 Sodium 141 Potassium 3.8 Chloride 109 Carbon Dioxide 23 BUN 12 Creatinine 0.96 Glucose 104 H Calcium 8.7 Active Medications Acetaminophen (Tylenol) 650 mg PO Q6HR PRN PRN Reason: Mild Pain (1-3) Stop: 04/20/17 23:43 Amlodipine Besylate (Norvasc) 10 mg PO DAILY [facility] Stop: 04/21/17 09:01 Last Admin: 10/20/16 09:23 Dose: 10 mg Aspirin (Aspirin Ec) 81 mg PO DAILY [facility] Stop: 04/21/17 09:01 Last Admin: 10/20/16 09:23 Dose: 81 mg Aspirin (Aspirin) 81 mg PO DAILY [facility] Stop: 04/22/17 09:01 Last Admin: 10/21/16 07:37 Dose: Not Given Gabapentin (Neurontin) 300 mg PO TID [facility] Stop: 04/21/17 09:01 Last Admin: 10/20/16 20:03 Dose: 300 mg Lisinopril/HCTZ (Prinzide 10-12.5) 2 each PO DAILY [facility] Stop: 04/22/17 09:01 Heparin Sodium (Porcine) (Heparin) 4,000 unit IVP Q6HR PRN PRN Reason: SEE COMMENTS Stop: 04/21/17 05:51 Heparin Sodium (Porcine) (Heparin) 2,000 unit IVP Q6H PRN PRN Reason: SEE COMMENTS Stop: 04/21/17 05:51 Heparin Sodium/Dextrose (Heparin 25,000 Unit/500 Ml D5w) 25,000 unit in 500 mls @ 19.893 mls/hr IVC .Q24H MARI; 9.1 UNIT/KG/HR PRN Reason: Protocol Stop: 04/21/17 06:01 Last Admin: 10/21/16 03:30 Dose: Not Given Isosorbide Mononitrate (Imdur) 60 mg PO DAILY [facility] Stop: 04/21/17 09:01 Last Admin: 10/20/16 09:23 Dose: 60 mg Meclizine HCl (Antivert) 25 mg PO Q6H PRN PRN Reason: DIZZINESS Last Admin: 10/20/16 17:12 Dose: 25 mg Methocarbamol (Robaxin) 750 mg PO QID PRN PRN Reason: Muscle Spasm Stop: 04/21/17 16:00 Last Admin: 10/20/16 17:01 Dose: 750 mg Metoprolol Tartrate (Lopressor) 25 mg PO BID [facility] Stop: 04/21/17 21:01 Last Admin: 10/20/16 20:03 Dose: 25 mg Morphine Sulfate (Morphine Sulfate) 2 mg IVP Q4HR PRN PRN Reason: Severe Pain (7-10) Stop: 04/20/17 23:43 Last Admin: 10/20/16 15:29 Dose: 2 mg Morphine Sulfate (Ms Contin) 15 mg PO BID [facility] Stop: 04/21/17 21:01 Last Admin: 10/20/16 20:02 Dose: 15 mg Naloxone HCl (Narcan) 0.4 mg IVP Q2MIN PRN PRN Reason: Opioid Reversal Stop: 04/20/17 23:43 Nitroglycerin (Nitroglycerin) 0.4 mg SL Q5MIN PRN PRN Reason: Chest Pain Stop: 04/21/17 05:54 Omeprazole (Prilosec) 20 mg PO DAILY [facility] Stop: 04/22/17 09:01 Ondansetron HCl (Zofran) 4 mg IVP Q8HR PRN PRN Reason: Nausea And Vomiting Stop: 04/20/17 23:43 Last Admin: 10/20/16 17:30 Dose: 4 mg Pharmacy Profile Note (Patient Taking Own Medication) 1 each PO HS [facility] Stop: 04/21/17 21:01 Last Admin: 10/20/16 20:03 Dose: Not Given Pharmacy Profile Note (Patient Taking Own Medication) 0 each OP QID MARI Stop: 04/21/17 17:01 Last Admin: 10/20/16 20:03 Dose: Not Given Pharmacy Profile Note (Patient Taking Own Medication) 0 each PO DAILY [facility] Stop: 04/22/17 09:01 Tamsulosin HCl (Flomax) 0.4 mg PO DAILY [facility] PRN Reason: Protocol Stop: 04/21/17 09:01 Last Admin: 10/20/16 09:23 Dose: 0.4 mg Ticagrelor (Brilinta) 90 mg PO BID [facility] Stop: 04/21/17 21:01 Last Admin: 10/20/16 20:02 Dose: 90 mg Vitamin D (Vitamin D) 1,000 unit PO DAILY [facility] Stop: 04/22/17 09:01 - Imaging and Cardiology Echo: pending Cardiac cath: report reviewed Other Results: 12 hour tele: avg HR=59 SR/SB. No significant events noted. - EKG Interpretation EKG results cardiology: personally reviewed Consult Discharge Plan - Plan [facility]errals: [facility] [Primary Care Provider] -
[2016-10-21] MEDS ORDERED: UBIDECARENONE 200 MG PO SCH (09:00)
[2016-10-21] MEDS ORDERED: Cholecalciferol (D-3) 1,000 UNIT TABLET PO SCH (09:00)
[2016-10-21] MEDS ORDERED: Aspirin 81 MG TAB.CHEW PO SCH (09:00)
[2016-10-21] MEDS: amLODIPine 5 MG TABLET PO SCH (09:46)
[2016-10-21] MEDS: Isosorbide MONOnitrate (24 HR) 60 MG TAB.ER.24H PO SCH (09:46)
[2016-10-21] MEDS: Gabapentin 300 MG CAPSULE PO SCH (09:46)
[2016-10-21] MEDS: *HR* Morphine Sulfate SR (12 HR) 15 MG TABLET.ER PO SCH (09:46)
[2016-10-21] MEDS: Aspirin Enteric Coated 81 MG Tablet PO SCH (09:46)
[2016-10-21] MEDS: *HR* Ticagrelor 90 MG TABLET PO SCH (09:47)
[2016-10-21 09:58] VITALS: BP 128/59
[2016-10-21] MEDS: CARBOXYMETHYLCELLULOSE SODIUM D OP SCH ×2 (11:16→11:17)
--- NOTE | 2016-10-21 11:55 | Discharge Summary ---
Date of Encounter: 10/21/16 Time of Encounter: 11:00 - Discharge Diagnosis (1) NSTEMI (non-ST elevated myocardial infarction) Priority: Primary Status: Acute (2) Coronary artery disease Priority: Primary Status: Acute Qualifiers: Coronary Disease-Associated Artery/Lesion type: [place] artery [place] vs. transplanted heart: [place] heart Associated angina: with unstable angina Qualified Code(s): I25.110 - Atherosclerotic heart disease of [place] coronary artery with unstable angina pectoris (3) Hypokalemia Priority: Secondary Status: Acute (4) Essential hypertension Priority: Secondary Status: Acute (5) Type 2 diabetes mellitus Priority: Secondary Status: Acute Qualifiers: Diabetes mellitus complication status: with circulatory complication Diabetes mellitus complication detail: with other circulatory complications Diabetes mellitus terminal operator insulin use: with fdc use Qualified Code(s) : E11.59 - Type 2 diabetes mellitus with other circulatory complications; Z79.4 - intermediate designer (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) use of insulin (6) DVT prophylaxis Priority: Secondary Status: Acute - Discharge Medications Prescriptions: Ticagrelor [Brilinta] 90 mg PO BID #60 tablet Home Medications: Acetaminophen [Tylenol] 325 mg PO Q6HR PRN 10/19/16 [History] Amlodipine Besylate 10 mg PO DAILY 10/19/16 [History] Aspirin Enteric Coated [Aspirin EC] 81 mg PO DAILY 10/19/16 [History] Carboxymethylcellulose Sodium [Refresh Liquigel] 1 drop BOTH EYES QID 10/19/16 [ History] Cholecalciferol (D-3) [Vitamin D] 2,000 unit PO DAILY 10/19/16 [History] Gabapentin [Neurontin] 300 mg PO TID 10/19/16 [History] Grape Seed Extract [Grape Seed] 50 mg PO DAILY 10/19/16 [History] Isosorbide MONOnitrate (24 HR) [Imdur] 60 mg PO DAILY 10/19/16 [History] Lisinopril/Hydrochlorothiazide [Zestoretic 20-25 mg Tablet] 1 each PO DAILY [History] Meclizine HCl [Verticalm] 25 mg PO Q6H PRN 10/19/16 [History] Metformin HCl [Glucophage] 1,000 mg PO BID 10/19/16 [History] Methocarbamol [Robaxin-750] 750 mg PO QID PRN 10/19/16 [History] Metoprolol [Lopressor] 37.5 mg PO BID 10/19/16 [History] Morphine Sulfate 15 mg PO BID 10/19/16 [History] Pantoprazole Sodium [Protonix] 40 mg PO DAILY 10/19/16 [History] Pravastatin Sodium [Pravachol] 30 mg PO HS 10/19/16 [History] Tamsulosin [Flomax] 0.4 mg PO DAILY 10/19/16 [History] Testosterone [Androgel] 2 spray TD DAILY 10/19/16 [History] Ubidecarenone [Coenzyme Q-10] 200 mg PO DAILY 10/19/16 [History] Ticagrelor [Brilinta] 90 mg PO BID #60 tablet 10/21/16 [Rx] Allergies/Adverse Reactions: Allergies celecoxib [From Celebrex] Allergy (Verified 10/19/16 17:16) Palpitations simvastatin Allergy (Verified 10/19/16 17:16) Joint Pain Procedures/tests Complete & Pending: Procedures Performed prior 72 hours Category Date Time Status ECG 12 lead ECG [ECG] Routine Y 10/19/16 17:18 Completed Date of admission: 10/20/16 14:59 [facility]: [facility] Discharging clinician: Celestino Suh Anticipated date of discharge: 10/21/16 - Patient Status Disposition: Home, Self-Care Condition: Good Functional capacity at discharge: independent ambulation Overall status at discharge: patient is back to baseline - Discharge Instructions Follow Up With: [facility] [Primary Care Provider] - - Diet and Activity Activity: increase activity as tolerated Diet: diabetic diet Interval History: Mr. Bocanegra is a 71 year old male with past medical history significant for coronary artery disease hypertension and diabetes who presented to the hospital for chest pain. He describes left-sided chest pain which started at rest earlier today graded as 7/10, pressure or squeezing like initially improved with nitroglycerin. He initially presented to the [place] and was transferred to our hospital. At the [place] his troponin was negative. Here in the emergency department troponin was 0.15. Hospital course: Mr. Bocanegra is a 71 year old male admitted as NSTEMI. He was treated with heparin drip, cardiology consult was called and saw pt. Catheterization and stenting was done. After treatment, pt is stable, no more chest pain. Will discharge pt home today. I saw and examined pt today. He is AAO x 3. No SOB. Vitals are stable. Cardiology saw pt this morning, no catheterization complications. Will d/c pt home and f/u with cardiology as outpatient. - Time Spent with Patient Total time spent providing and/or coordinating discharge services: 40min Greater than 30 minutes - Constitutional Vitals: Temp Pulse Resp BP Pulse Ox 97.6 F 65 16 128/59 99 10/21/16 09:00 10/21/16 10:03 10/21/16 09:00 10/21/16 09:00 10/21/16 09:00 General appearance: Present: A&O X 3 - Head Head exam: Present: atraumatic, normocephalic - Eye Eye exam: Present: PERRL, conjuntiva pink, sclera anicteric Pupils: Present: PERRL - Neck Neck exam general surgery: Present: supple, trachea midline. Absent: lymphadenopathy - Respiratory Respiratory exam: Present: CTAB. Absent: accessory muscle use, rales, rhonchi, wheezes - Cardiovascular Cardiovascular exam: Present: RRR, +S1, +S2. Absent: diastolic murmur, gallop, rubs, systolic murmur - GI/Abdominal GI/Abdominal exam: Present: normal bowel sounds, soft, no peritoneal signs. Absent: distended, tenderness - Extremities Exam Extremities exam: Present: warm, radial pulses palpable and symetrical. Absent : calf tenderness, cyanotic, pedal edema - Neurological Exam Neurological exam: Present: CN II-XII intact, oriented X3, no focal deficits. Absent: pronater drift, facial droop, speech deficit - Skin Skin exam: Present: dry, intact
--- NOTE | 2016-10-21 12:02 | Invasive Diagnostic Lab ---
Name: Lb Bocanegra Date of Study: 10/20/2016 Date: 1945 Ht: 178.0 cm /70.1 in Medical Record#: [id number] Age: 71 Wt: 109.3 kg / 240.97 lb Account/Order#: [id number] Gender: Male BSA: 2.26 Order #: [id number] Fluoro Dose: 1894 mGy BMI: 34.5 Procedure Physician: Alex Powers MD Referring MD: [facility] Referring MD: Procedures Performed: LEFT HEART CATH IV Doppler BLD Flow 1st Vessel Stent w/ PTCA Single Major Vessel Indications: Non-Stemi Impressions: There is severe one vessel coronary artery disease. The left ventricle is normal and has normal contractility EF 55% Patient had successful PTCA/Drug-Eluting Stent placement in the mid Right PDA. FFR Measurement: 0.72 for right PDA FFr measurement: 0.82 for right PLB Recommendations: Optimal medical therapy of patient's disease. Aggressive risk factor modification. Patient being referred for cardiac rehab. History/Risk Factors: Prior PCI (stent x 2) HPTN DM HLD Vertigo GERD Ex-smoker Procedure Access obtained in the right Femoral artery by percutaneous puncture Patient had successful PTCA/Drug-Eluting Stent placement in the mid Right PDA. A pressure tipped wire was advanced through the catheter into the Right PDA. Measurements of FFR were made during hyperemia induced by intracoronary adenosine. FFR Measurement 0.72 A pressure tipped wire was advanced through the catheter into the Right PLB. Measurements of FFR were made during hyperemia induced by intracoronary adenosine. FFR Measurement 0.82 Complications: None, None Contrast: Isovue 246ml Closure Device: Manual Compression Hemodynamics: Pressures Site Systolic/ A Wave Diastolic/ V Wave End Diastolic/ Mean HR AO 117 75 94 58 AO 122 84 102 71 AO 104 76 90 76 LV 135 0 17 73 LV 124 37 43 68 AO 114 72 93 63 AO 119 66 88 66 Wire 103 55 73 66 AO 130 70 92 56 Wire 118 58 77 56 AO 0 Wire 0 AO 121 71 93 62 LV Ventriculography Ejection Method: LV Gram Ejection Fraction: 55% Wall Motion: WEAVER Anterobasal Normal Anterolateral Normal Apical: Normal Inferoapical Normal Inferobasal Normal Coronary Dominance: right Lesion Findings/Interventions * Left Main Coronary Artery The LMCA is angiographically free of disease. * Left Anterior Descending There is a 20% stenosis in the Mid LAD. * Circumflex There is a 20% stenosis in the Proximal Circumflex. * Right Coronary Artery There is a 16 mm long, 70% stenosis in the Right PDA. The lesion has a HUSSAIN flow of 3. An intervention was performed on the Right PDA with a final stenosis of 0%. There were no lesion complications. The final HUSSAIN flow was 3. There is a 60% stenosis in the 1st RPL. The lesion has a HUSSAIN flow of 3. Interventional Device(s) Vessel Segment Type Name Diameter (mm) Length (mm) Right PDA Balloon Emerge Monorail 2 12 Right PDA Drug Eluting Stent Promus Premier Rx 2.25 16 Updated by Shanthi Smalls RN on 10/20/2016 1:35:55 PM Alex Powers MD electronically signed on 10/21/2016 11:57:03 AM with status of Final
--- NOTE | 2016-10-21 12:28 | ECHO - Doppler Report ---
Echocardiogram Name: Lb Bocanegra Date of Study: 10/21/2016 Date: 1945 Ht: 70.0 in Medical Record#: [id number] Age: 71 Wt: 245.0 lb Gender: Male BSA: 2.28 Order #: [id number] Location: [facility] Room #: 2N01 Reading Physician: Claudia Wesley DO Commercial Parts Professional: Antonio Preston RDCS Ordering Physician: Kwasi Olvera MD Primary Physician: None Indications: NSTEMI Impressions: LVEF 55%. Normal left ventricular size and systolic function. There is evidence of moderate diastolic dysfunction of the left ventricle. Mildly dilated with normal function. No significant valvular dysfunction. No pulmonary hypertension. Left Ventricular Wall Motion: Rest Echo Findings All wall segments showed normal motion. Findings: Study Quality * Technically adequate exam. Left Ventricle * LVEF 55%. * Normal LV chamber size, wall thickness and function. * Moderate left ventricular diastolic dysfunction. ECG Findings * Sinus bradycardia. Aortic Valve * No aortic regurgitation. * Trileaflet aortic valve. * Normal aortic valve structure. * No aortic stenosis. Tricuspid Valve * Tricuspid valve not well visualized. * No tricuspid regurgitation. Pulmonic Valve * Pulmonic valve is not well visualized. * No pulmonic stenosis. * Trace pulmonic regurgitation. Pulmonary Artery * Pulmonary artery not well visualized. Right Ventricle * Dilated RV with normal function. Left Atrium * Normal left atrial size. Right Atrium * Normal right atrial size. Mitral Valve * No mitral stenosis. * Trace mitral regurgitation. Interatrial Septum * Interatrial septum not well evaluated. IVC * The IVC is not well evaluated. Pericardium * There is no pericardial effusion present. Aorta * Normally sized aortic root. History Hypertension Diabetes Hypercholesteremia Measurements: BP: 119/ 78 2D Normal Values IVSd: 1.00 cm 0.6 - 1.0 cm LVIDd: 4.60 cm 3.7 - 5.6 cm LVPWd: 1.00 cm 0.6 - 1.1 cm LVIDs: 2.60 cm 1.5 - 3.6 cm AO: 3.00 cm < 4.0 cm LA: 2.70 cm 2.0 - 4.0cm %FS: 43.50 cm >25 % LA volume: 59 Mitral Valve Peak E:.98 m/sec Peak A:.72 m/sec E/A Ratio:1.4 Peak E' Lat Billy:9.07 cm/s Peak E' Med Billy:6.14 cm/s E/E' Lat Ratio:10.8 E/E' Med Ratio:16 Tricuspid Valve TV Regurg Peak Grad: 14.00mmHg TV Regurg Peak Billy: 1.89m/sec Updated by Claudia Wesley on 10/21/2016 12:23:20 PM electronically signed on 10/21/2016 12:23:44 PM with status of Final Wall Motion Llamas: 1=Normal, 2=Hypokinesis, 3=Akinesis, 4=Dyskinesis, 5=Aneurysmal, 6=Hyperkinetic, X=Not Visualized (Blank)=Missing
--- NOTE | 2016-10-22 11:51 | Invasive Diagnostic Lab Proc ---
Name: Lb Bocanegra Date of Study: 10/20/2016 Date: 1945 Ht: 70.1in Medical Record#: [id number] Age: 71 Wt: 240.97lb Gender: Male BSA: 2.26 Order #: [id number] BMI: 34.5 Physicians Procedure Physician: Alex Powers MD Referring MD: [facility] Referring MD: Staff Name Position Time In Shanthi Atkinson RN Monitor 12:22 PM Reddy Kowalski RN Retail Salesperson 12:22 PM Edyta Arias RT (R) Scrub 12:22 PM Indications Indication Non-Stemi Procedures Performed Procedure L HRT ARTERY/VENTRICLE ANGIO IV Doppler BLD Flow 1st Vessel PRQ CARD PRINCE STENT W/ANGIO 1 VSL Pre-Procedure Checklist Informed consent is complete signed and on chart. H\\T\\P is on chart. ID band is on and ID verified with patient. Patient NPO for procedure The procedure was described for the patient and questions were answered. Blood Pressure: 143/82 ECG is on chart. Rhythm: NSR Plan of Care Patient will tolerate the procedure without complications. Adequate level of comfort will be maintained. Hemodynamics will remain stable Patient will recover from procedure without complications. Respiratory function will be maintained. Cardiac rhythm will remain stable. Patient temperature will be maintained. Patient and/or family have verbalized understanding of the procedure. Patient Education Chief Complaint/Reason for Test: Cardiac Cath Developmental Category: Geriatric (65+ years) Developmentally Appropriate for Age: Yes Learning Barriers: None Education Needs: Procedure Education Method: Verbal Information Taught: Cardiac Cath Educational Evaluation: Able to repeat information Intravenous Access Time IV Size Location DC'd Fluid/Drip Rate Units RN 11:51 AM 20g 1 1/4" Patent On Arrival Rt Antecubital 0.9NaCl 25 ml/hr Allergies simvastatin celecoxib Vital Signs Time BP (mmHg) HR (bpm) O2 Sat. RR (bpm) LOC 10:24 AM 143 / 82 58 95 % 16 5 = Fully awake and oriented or at pre-proc level 12:24 PM / % 5 = Fully awake and oriented or at pre-proc level 12:24 PM / % 4 = Oriented but drowsy 12:56 PM / % 4 = Oriented but drowsy 12:22 PM 139 / 75 57 98 % 12:27 PM 135 / 79 55 98 % 12 12:31 PM 125 / 81 62 96 % 18 12:37 PM 130 / 79 64 96 % 13 12:42 PM 129 / 76 69 95 % 17 12:47 PM 129 / 76 64 96 % 13 12:52 PM 134 / 74 62 96 % 15 12:57 PM 138 / 74 62 95 % 12 01:02 PM 130 / 75 65 96 % 11 01:07 PM 132 / 75 62 97 % 11 01:12 PM 132 / 75 63 97 % 13 01:14 PM 133 / 70 63 96 % 12 01:17 PM 122 / 73 65 96 % 13 01:22 PM 123 / 77 60 97 % 13 01:11 PM / % 4 = Oriented but drowsy 01:40 PM 130 / 78 55 97 % 10 5 = Fully awake and oriented or at pre-proc level 02:15 PM 129 / 76 57 97 % 15 5 = Fully awake and oriented or at pre-proc level 02:00 PM 126 / 76 60 96 % 12 5 = Fully awake and oriented or at pre-proc level Procedural Medications Time Medication Dose Units Method Given By 12:23 PM Oxygen 2 L/min nasal cannula Reddy Kowalski RN 12:26 PM Versed 1 mg Intravenous Reddy Kowalski RN 12:26 PM Fentanyl 50 mcg Intravenous Reddy Kowalski RN 12:34 PM Lidocaine 2% 20 ml Subcutaneous Alex Powers MD 12:39 PM Nitroglycerin 200 mcg Intracoronary Alex Powers MD 12:45 PM Angiomax 0.75mg/kg bolus: 16.5 ml Intravenous Reddy Kowalski RN 12:48 PM Angiomax 1.75mg/kg/hr: 38.5 ml Intravenous Reddy Kowalski RN 12:56 PM Adenosine 400 mcg Intracoronary Alex Powers MD 12:56 PM Adenosine 120 mcg Intracoronary Alex Powers MD 12:58 PM Adenosine 100 mcg Intraccrary Alex Powers MD 01:14 PM Nitroglycerin 200 mcg Intracoronary Alex Powers MD 01:17 PM Brilinta 180 mg Orally Reddy Kowalski RN 01:03 PM Fentanyl 50 mcg Intravenous Reddy Kowalski RN 01:26 PM Angiomax 1.75mg/kg/hr: ml Dc'd Reddy Kowalski RN ASA Classification: CLASS II- Mild systemic disease (i.e. well-controlled diabetes, hypertension, asthma, cigarette smoking) Bradley Score Preprocedure Postprocedure Activity 2- Moves 4 extremities sustained head lift Activity 2- Moves 4 extremities sustained head lift Circulation 2- SBP +/= 20 points of pre-anesthetic level Circulation 2- SBP +/= 20 points of pre-anesthetic level Consciousness 2- Awake and alert oriented x 3 Consciousness 2- Awake and alert oriented x 3 O2 Saturation 2- Able to maintain O2 satruation of 92% on room air O2 Saturation 2- Able to maintain O2 satruation of 92% on room air Respiratory 2- Able to deep breathe and cough well Respiratory 2- Able to deep breathe and cough well Total Score 10 Total Score 10 Contrast Agent: Isovue Diagnostic Contrast: 246 ml Total Contrast: 246 ml Fluoro Dose: 1894 mGy Procedure Log Time Note Enter By 11:51 AM CathStat 12:19 PM 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 scoates 12: PM Procedure start 12:20 scoates 12: PM Vitals capture started with the following parameters, Patient=Adult, Interval=5 min, Initial Tufjvkuj=288 mmHg, Deflation Rate=5 mmHg, Cuff placed on Right Arm 12:22 PM HR=57 bpm, IZUG=128/75 mmhg, SpO2=98.0 %, Comment=sb 12:22 PM Patient charges- Angio tray pack, Navilyst 3mm J, Pulse Oximetry and ACIST tubing and transducer scoates 12: PM Shanthi Atkinson RN Position: Monitor Time in: : scoates 12: PM Reddy Kowalski RN Position: Retail Salesperson Time in: 12:22 scoates 12:22 PM Edyta Airas RT (R) Position: Scrub Time in: 12:22 scoates 12:22 PM Case Delayed No scoates 12: PM Hair removed from procedure site in procedure lab using clippers. Bilateral groin prepped with Chloraprep by Reddy Kowalski RN then patient draped. Skin intact. scoates 12:23 PM ASA Class CLASS II- Mild systemic disease (i.e. well-controlled diabetes, hypertension, asthma, cigarette smoking) scoates 12:23 PM Time: 12:23 Oxygen on at 2 L/min per nasal cannula by Reddy Kowalski RN scoates 12: PM Time: 12:23 Patient comfortable and pain free: Yes scoates 12:24 PM Time: 12:24LOC: 5 = Fully awake and oriented or at pre-proc level scoates 12: PM Time: 12: Versed 1 mg Intravenous Given by Reddy Kowalski RN scoates 12: PM Time: 12: Fentanyl 50 mcg Intravenous Given by Reddy Kowalski RN scoates 12: PM HR=55 bpm, GMWD=247/79 mmhg, SpO2=98.0 %, Resp=12 B/min, Comment=sb 12: PM Pressure channel 1 zeroed. 12:31 PM HR=62 bpm, GPEN=749/81 mmhg, SpO2=96.0 %, Resp=18 B/min, Comment=sr 12:34 PM Clinical Presentation: Unstable angina scoates 12:34 PM Time out performed according to hospital policy scoates 12:34 PM Time: 12:34 20 ml Lidocaine 2% to right groin Subcutaneous Given by Alex Powers MD scoates 12:35 PM Access obtained by percutaneous puncture. 6Fr 10cm Terumo Delta sheath placed in right Femoral artery. [id number] scoates 12:35 PM 5Fr FL 4 catheter inserted over the wire DNC scoates 12:35 PM Recorded Pressure: Ao, HR=58, Condition=Condition 1 (Aorta) Ao 117/75/94 12:35 PM LCA angiography performed in multiple views. scoates 12:37 PM HR=64 bpm, YJDJ=137/79 mmhg, SpO2=96.0 %, Resp=13 B/min, Comment=sr 12:37 PM Catheter removed scoates 12:37 PM 5Fr FR 4 catheter inserted over the wire DNC scoates 12:38 PM Recorded Pressure: Ao, HR=71, Condition=Condition 1 (Aorta) Ao 122/84/102 12:39 PM Time: 12:24 Patient comfortable and pain free: Yes scoates 12:39 PM Time: 12:39 Nitroglycerin 200 mcg Intracoronary Given by Alex Powers MDoatecheryl 12:39 PM RCA angiography performed in multiple views. scoates 12:39 PM Recorded Pressure: Ao, HR=76, Condition=Condition 1 (Aorta) Ao 104/76/90 12:40 PM Catheter removed scoates 12:40 PM Coronary Dominance: right scoates 12:40 PM Lesion found in Mid LAD. Pre Stenosis: 20 Pre HUSSAIN Flow: scoates 12:40 PM Lesion found in Proximal Circumflex. Pre Stenosis: 20 Pre HUSSAIN Flow: scoates 12:41 PM Lesion found in Right PDA. Pre Stenosis: 70 Pre HUSSAIN Flow: scoates 12:41 PM Recorded Pressure: LV, HR=73, Condition=Condition 1 (Left Ventricle) LV 135/0/17 12:41 PM 5Fr Pigtail catheter inserted over the wire [facility] scoates 12:41 PM Catheter selectively placed in left ventricle scoates 12:41 PM Bolus angiogram of left Ventricle complete: 10 ml/sec for a total of 30 mls scoates 12:41 PM Recorded Pressure: LV, Ao, HR=65, Condition=Condition 1 (Left Ventricle) LV 124/37/43, (Aorta) Ao 114/72/93 12:42 PM HR=69 bpm, LIJA=963/76 mmhg, SpO2=95.0 %, Resp=17 B/min, Comment=sr 12:43 PM Pressure channel 3 zeroed. 12:44 PM Catheter removed scoates 12:44 PM Inflation device was opened. scoates 12:44 PM 6Fr JR4 Runway guide catheter was used to cannulate the PCI vessel successfully. reused? No scoates 12:44 PM [place] Prime Wire Prestige advanced to target lesion. scoates 12:46 PM Time: 12:45 Angiomax 0.75mg/kg bolus: 16.5 ml Intravenous Given by Reddy Kowalski RN Vanegas pump scoates 12:47 PM HR=64 bpm, YTYL=018/76 mmhg, SpO2=96.0 %, Resp=13 B/min 12:48 PM Time: 12:46 Angiomax 1.75mg/kg/hr: 38.5 ml Intravenous Given by Reddy Kowalski RN Vanegas pump scoates 12:49 PM Pressure channel 3 equalized to channel 1. 12:51 PM Pressure channel 3 equalized to channel 1. 12:52 PM HR=62 bpm, CBSK=128/74 mmhg, SpO2=96.0 %, Resp=15 B/min, Comment=sb 12:53 PM FFR: Value=0.82, Condition=Condition 1, Device=VOLCANO PRIME WIRE 12:53 PM Recorded Pressure: Ao, Wire, FFR=0.82, HR=66, Condition=Condition 1 (Aorta) Ao 119/66/88, (FFR Wire) Wire 103/55/73 12:55 PM FFR: Value=0.82, Condition=Condition 1, Device=VOLCANO PRIME WIRE 12:55 PM Recorded Pressure: Ao, Wire, FFR=0.82, HR=56, Condition=Condition 1 (Aorta) Ao 130/70/92, (FFR Wire) Wire 118/58/77 12:56 PM Time: 12:39 Patient comfortable and pain free: Yes scoates 12:56 PM Time: 12:24LOC: 4 = Oriented but drowsy scoates 12:56 PM Time: 12:56 Adenosine 400 mcg administered Intracoronary by Alex Powers MD scoates 12:56 PM FFR Measurement: 0.82 of the right PLB scoates 12:56 PM Time: 12:56 Adenosine 120 mcg administered Intracoronary by Alex Powers MD scoates 12:56 PM FFR Measurement: 0.82 right PLB scoates 12:57 PM HR=62 bpm, FHQU=256/74 mmhg, SpO2=95.0 %, Resp=12 B/min 12:57 PM FFR: Value=0.71, Condition=Condition 1, Device=VOLCANO PRIME WIRE 12:57 PM Recorded Pressure: Ao, Wire, FFR=0.71, HR=67, Condition=Condition 1 (Aorta) Ao ?/?/?, (FFR Wire) Wire ?/?/? 12:58 PM [ Start FFR sample ] 12:58 PM Time: 12:58 Adenosine 100 mcg administered Intracoronary by Alex Powers MD scoates 12:59 PM FFR Measurement: 0.71 of the right PDA scoates 01:01 PM PCI Status Urgent scoates 01:01 PM Clinical Presentation: Non-STEMI scoates 01:02 PM HR=65 bpm, SCVS=553/75 mmhg, SpO2=96.0 %, Resp=11 B/min, Comment=sb 01:02 PM 2.25mm x 16mm Promus Premier Rx drug-eluting stent across target lesion- successful Lot #[id number] scoates 01:02 PM stent removed, not deployed and in tact, no charge, unable to reuse stent scoates 01:03 PM Time: 13:03 Fentanyl 50 mcg Intravenous Given by Reddy Kowalski RN scoates 01:03 PM Flow Wire removed intact scoates 01:03 PM .014 Prowater 180cm guide wire across target lesion- successful. reused? No scoates 01:05 PM Lesion found in 1st RPL. Pre Stenosis: 60 Pre HUSSAIN Flow: 3: Complete and Brisk Flow/Perfusion scoates 01:05 PM Recorded Pressure: Ao, HR=62, Condition=Condition 1 (Aorta) Ao 121/71/93 01:06 PM .014 Prowater 180cm guide wire across target lesion- successful. reused? No scoates 01:07 PM HR=62 bpm, ATNW=037/75 mmhg, SpO2=97.0 %, Resp=11 B/min, Comment=sr 01:07 PM 1st prowater removed intact scoates 01:08 PM 2.0 mm x 12 mm Emerge Monorail balloon across target lesion- successful. reused? No scoates 01:08 PM Balloon inflated @ 10 travon for 7 seconds scoates 01:09 PM Balloon inflated @ 10 travon for 4 seconds scoates 01:11 PM Balloon catheter removed intact. scoates 01:11 PM Time: 12:56 Patient comfortable and pain free: Yes scoates 01:11 PM Time: 12:56LOC: 4 = Oriented but drowsy scoates 01:11 PM 2.25mm x 16mm Promus Premier Rx drug-eluting stent across target lesion- successful Lot #[id number] scoates 01:12 PM HR=63 bpm, NDKF=597/75 mmhg, SpO2=97.0 %, Resp=13 B/min, Comment=sb 01:13 PM Stent deployed @ 10 travon for 12 seconds scoates 01:13 PM NIBP STAT measurement started. 01:14 PM Time: 13:14 Nitroglycerin 200 mcg Intracoronary Given by Alex Powers MD scoates 01:14 PM HR=63 bpm, VMYI=592/70 mmhg, SpO2=96.0 %, Resp=12 B/min, Comment=sb 01:15 PM Stent delivery system removed intact. scoates 01:15 PM Guide catheter removed intact. scoates 01:15 PM Guide wire removed intact. scoates 01:17 PM HR=65 bpm, IEOB=703/73 mmhg, SpO2=96 %, Resp=13 B/min 01:17 PM Time: 13:17 Brilinta 180 mg Orally Given by Reddy Kowalski RN scoates 01:18 PM Procedure completed at 13:18 scoates 01:18 PM Sign out completed: Radiation Dose 1894 mGy Fluoro Time: 10.6 Isovue 370 - 200ml contrast 246 ml given by Alex Powers MD. Complications: NoneCardiac Rehab Consult needed: YesConfirmed administered medications: Yes scoates 01:22 PM HR=60 bpm, EOQB=682/77 mmhg, SpO2=97 %, Resp=13 B/min 01:26 PM Time: 13:11 Patient comfortable and pain free: Yes scoates 01:26 PM Time: 13:11LOC: 4 = Oriented but drowsy scoates 01:26 PM Time: 13:26 Angiomax 1.75mg/kg/hr: ml Dc'd Given by Reddy Kowalski RN Vanegas pump scoates 01:26 PM Sheath left in place to be pulled on floor/holding [email or web address] scoates 01:27 PM Post ECG NSR scoates 01:27 PM Post Blood Pressure 123/77 scoates 01:28 PM 13:28 Post Pulses Bilateral DP \\T\\ PT 2+ scoates 01:28 PM Information taught Cardiac Cath and PCI scoates 01:28 PM Education needs Procedure, Plan of Care, and Responsibilities of Patient in Care scoates 01:28 PM Learning barriers :None scoates 01:28 PM Education Methods Verbal scoates 01:28 PM Education evaluation Able to repeat information scoates 01:29 PM Site status No bleeding/hematoma - Rt Groin as reported by Edyta Arias RT (R) at 13:29 scoates 01:29 PM Opsite applied scoates 01:29 PM Plavix, Effient or Brilinta given Yes scoates 01:29 PM Delay to floor Bed availability scoates 01:29 PM Patient out of room: 13:29 scoates 01:29 PM Family placed in consult room. scoates 01:29 PM Complications: None scoates 01:30 PM Mid/Distal Left Anterior Descending Coronary Artery and diagonal branches with 20% stenosis. If graft is supplying this area, 0 % stenosis scoates 01:30 PM Circumflex, Obtuse Marginal, Left Posterior Descending, and Left Posterolateral Coronary Arteries with 20 % stenosis. If graft is supplying this area, 0 % stenosis scoates 01:30 PM Right Coronary, Right Posterior Descending Arteries with Right Posterolateral and Acute Marginal branches with 70 % stenosis. If graft is supplying this area, 0 % stenosis scoates 01:35 PM Patient taken to holding area room 3 by Reddy URIBE while waiting for a 2N bed scoates 01:42 PM Resting comfortably, family at the bedside [email or web address] 02:36 PM called report to Sherron on 2N, pt taken to 2N1 at this time csmith Complications Complication None None Hemodynamics Pressures Site Systolic/A Wave Diastolic/V Wave Mean AO 117 75 94 AO 122 84 102 AO 104 76 90 LV 135 0 17 LV 124 37 43 AO 114 72 93 AO 119 66 88 Wire 103 55 73 AO 130 70 92 Wire 118 58 77 AO Wire AO 121 71 93 Post Procedure Information Blood Pressure: 123/77 mmHg Rhythm: NSR Post procedural instructions were given Closure Device Time Device Success/Fail Manual Compression Site Checks Time Location Status Staff Sheath In? Note 01:29 PM Rt Groin No bleeding/hematoma Edyta Arias RT (R) Yes 01:40 PM Rt Groin No bleeding/ No Hematoma Reddy Kowalski RN Yes 02:00 PM Rt Groin No bleeding/ No Hematoma Edyta Arias RT (R) Yes 02:18 PM Rt Groin No bleeding/ No Hematoma Shanthi Atkinson RN Yes 02:01 PM Rt Groin No bleeding/ No Hematoma Edyta Arias RT (R) Pulses Time Site Pre-Procedure Post-Procedure Note 10/20/2016 10:25:00 AM Bilateral DP 2+ 10/20/2016 10:25:00 AM Bilateral radial 2+ 1:28:00 PM Bilateral DP \\T\\ PT 2+ 10/20/2016 2:20:00 PM Bilateral DP \\T\\ PT 2+ Updated by Shanthi Smalls RN on 10/22/2016 11:47:01 AM electronically signed on 10/22/2016 11:47:26 AM with status of Final
--- NOTE | 2016-10-22 15:01 | Electrocardiograph Report ---
[address] [place], [place] [address] Test Date: 2016-10-19 Pat Name: Lb Bocanegra Department: 103 Room: 2N01 Gender: M Manager Cancer: : 1945 Requested By: Celestino Suh Order Number: [id number] Reading MD: Andre Hauser MD Measurements Intervals [place] Rate: 65 P: -6 NM: 178 QRS: -17 QRSD: 118 T: -1 QT: 400 QTc: 411 Interpretive Statements SINUS RHYTHM MINIMAL VOLTAGE CRITERIA FOR LVH INFERIOR MYOCARDIAL INFARCTION, PROBABLY OLD Electronically Signed On 10-22-2016 14:59:23 EST by Andre Hauser MD
--- NOTE | 2016-10-22 15:55 | Electrocardiograph Report ---
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
== END 2016-10-21 13:15 | disposition home or self-care (01) | DRG 247 ==
LOC: 3BNU 17:11 → EMEROO 17:11 → SUATTDRO 22:31 → 3BNU 23:13 → 2NNU 10-20 14:58
PROVIDERS: ADMIT Internal Medicine; ATTEND Internal Medicine

== ENCOUNTER 2019-12-18 20:51 | Observation (INO) ==
[2019-12-18 22:02] LABS: White Blood Count 9.9 K/mcL (4.3-11.1)
[2019-12-18 22:03] LABS: Basophils # 0.1 K/mcL (0.0-0.2); Basophils % 0.5 %; Eosinophils # 0.2 K/mcL (0.0-0.6); Eosinophils % 1.8 %; Hematocrit 39.6 % (37.5-50.1); Hemoglobin 12.7 g/dL (12.9-16.9); Immature Granulocytes % 0.8 % (0-4); Lymphocytes # 2.7 K/mcL (0.6-4.6); Lymphocytes % 26.9 %; Mean Corpuscular HGB Conc 32.1 g/dL (31.6-35.5); Mean Corpuscular Hemoglobin 28.9 pg (28.0-33.3); Mean Platelet Volume 10.1 fL (9.4-12.4); Monocytes # 0.8 K/mcL (0.0-1.3); Monocytes % 8.4 %; Neutrophils # 6.1 K/mcL (1.6-8.9); Platelet Count 240 K/mcL (140-400); Red Cell Distribution Width 14.4 % (11.5-14.5); Segmented Neutrophils % 61.6 %
[2019-12-18 22:07] LABS: Prothrombin Time 11.3 Seconds (9.4-12.1)
[2019-12-18 22:25] LABS: Alanine Aminotransferase 15 Units/L (7-52); Albumin 4.1 g/dL (3.5-5.7); Albumin/Globulin Ratio 1.5 (1.1-2.2); Alkaline Phosphatase 59 Units/L (34-104); Aspartate Amino Transferase 13 Units/L (13-39); BUN/Creatinine Ratio 14 (6-26); Bilirubin,Total 0.5 mg/dL (0.3-1.0); Blood Urea Nitrogen 19 mg/dL (8-23); Calcium 9.2 mg/dL (8.6-10.3); Carbon Dioxide 27 mEq/L (23-29); Chloride 102 mEq/L (98-107); Globulin 2.7 g/dL (2.4-3.5); Glucose 129 mg/dL (70-105); Lipase 32 Units/L (11-82); Osmolality,Calculated 292 (280-300); Potassium 3.6 mEq/L (3.5-5.1); Sodium 139 mEq/L (136-145); Total Protein 6.8 g/dL (6.4-8.9); eGFR For African Americans > 60 (> 60); eGFR For Non-African Americans 53 (> 60)
[2019-12-18 22:26] LABS: Troponin I < 0.03 ng/mL (< 0.04)
[2019-12-19] MEDS ORDERED: Morphine Sulfate 2 MG/ML SYRINGE IVP PRN (00:02)
[2019-12-19] MEDS ORDERED: Aspirin Enteric Coated 81 MG Tablet PO ONE (00:40)
[2019-12-19] MEDS ORDERED: Ketorolac 15 MG/ML VIAL IM ONE (00:41)
[2019-12-19] MEDS: Nitroglycerin 0.4 MG TAB.SUBL SL SCH ×2 (01:29→01:30)
[2019-12-19] MEDS: 0.9 % Sodium Chloride 1,000 ML IVC SCH ×4 (01:45→23:14)
[2019-12-19] MEDS ORDERED: *HR* Dextrose 50 % in Water (Syg) 50 ML SYRINGE IVP PRN (04:25)
[2019-12-19] MEDS ORDERED: D5% in Water 1,000 ML IVC PRN (04:25)
[2019-12-19] MEDS ORDERED: Dextrose Gel 15 GM/37.5 ML TUBE PO PRN ×2 (04:25)
[2019-12-19] MEDS: Insulin LISPRO 300 UNITS/3 ML VIAL SQ SCH ×4 (08:06→23:15)
[2019-12-19] MEDS: amLODIPine 5 MG TABLET PO SCH (11:07)
[2019-12-19] MEDS: Morphine Sulfate Immed Rel 15 MG TABLET PO SCH ×2 (11:08→20:42)
[2019-12-19] MEDS: Aspirin Enteric Coated 81 MG Tablet PO SCH (11:08)
[2019-12-19] MEDS: Gabapentin 300 MG CAPSULE PO SCH ×3 (11:08→20:41)
[2019-12-19] MEDS: *HR* Ticagrelor 90 MG TABLET PO SCH ×2 (11:09→20:41)
[2019-12-19] MEDS: Isosorbide MONOnitrate (24 HR) 60 MG TAB.ER.24H PO SCH (11:09)
[2019-12-19] MEDS: Budesonide/Formoterol 160/4.5 1 PUFF INH IH SCH ×2 (17:01→20:13)
[2019-12-20 04:03] LABS: BUN/Creatinine Ratio 18 (6-26); Blood Urea Nitrogen 18 mg/dL (8-23); Calcium 8.8 mg/dL (8.6-10.3); Carbon Dioxide 25 mEq/L (23-29); Chloride 106 mEq/L (98-107); Glucose 124 mg/dL (70-105); Osmolality,Calculated 293 (280-300); Potassium 3.6 mEq/L (3.5-5.1); Sodium 140 mEq/L (136-145); eGFR For African Americans > 60 (> 60); eGFR For Non-African Americans > 60 (> 60)
[2019-12-20] MEDS: Insulin LISPRO 300 UNITS/3 ML VIAL SQ SCH (06:22)
[2019-12-20] MEDS: Aspirin Enteric Coated 81 MG Tablet PO SCH (07:20)
[2019-12-20] MEDS: *HR* Ticagrelor 90 MG TABLET PO SCH (07:21)
[2019-12-20] MEDS: Gabapentin 300 MG CAPSULE PO SCH (07:21)
[2019-12-20] MEDS: amLODIPine 5 MG TABLET PO SCH (07:21)
[2019-12-20] MEDS: Morphine Sulfate Immed Rel 15 MG TABLET PO SCH (07:21)
[2019-12-20] MEDS: Isosorbide MONOnitrate (24 HR) 60 MG TAB.ER.24H PO SCH (07:21)
[2019-12-20] MEDS: 0.9 % Sodium Chloride 1,000 ML IVC SCH (07:22)
[2019-12-20 08:00] VITALS: BP 131/77
[2019-12-20] MEDS: Budesonide/Formoterol 160/4.5 1 PUFF INH IH SCH (10:01)
== END 2019-12-20 12:17 | disposition home or self-care (01) ==
LOC: 3BNU 20:51 → EMEROOARM 20:51 → 3BNU 23:53
PROVIDERS: ADMIT Internal Medicine; ATTEND Internal Medicine